=== PATIENT | female | born 1990 | race Caucasian/White ===

== ENCOUNTER → 2016-09-23 | Outpatient (CLI) | payer BC ==
--- NOTE | 2016-09-23 08:28 | DIAGNOSTIC IMAGING REPORT ---
PELVIC ULTRASOUND CLINICAL HISTORY: Right lower quadrant pain. Suspected ovarian cyst. COMPARISON STUDY: None. TECHNIQUE: Transabdominal and transvaginal sonography of the pelvis was performed. FINDINGS: The uterus measures 7.2 x 3.5 x 3.8 cm. The endometrium measures 3 mm in thickness. A small amount of fluid within the pelvis is likely physiologic. The ovaries are sonographically normal. The right ovary measures 2.4 x 3.6 x 1.7 cm and left measures 2.2 x 1.9 x 3.3 cm. Color flow is identified within each ovary. IMPRESSION: 1. Normal sonographic appearance of the uterus and ovaries. Unremarkable pelvic ultrasound. 2. Trace fluid within the pelvis which is likely physiologic. Electronically signed by: Shawn Gomez M.D. 09/23/2016 8:27 AM Dictated Date/Time: 09/23/2016 8:26 AM
== END | disposition home or self-care (01) ==
LOC: C.ULTRBC 07:43
PROVIDERS: ATTEND Family Medicine Adolescent Medicine
DX: R10.30 Lower abdominal pain, unspecified (principal)